=== PATIENT | female | born 1985 | race Two or more races ===

== ENCOUNTER 2021-12-01 11:14 | Day surgery (SDC) | payer OTHER ==
[2021-12-01] MEDS ORDERED: NAPR500T14 PO (13:13)
[2021-12-01] MEDS ORDERED: MORGIDOX100 MG PO (13:13)
== END 2021-12-01 19:05 | disposition home or self-care (01) ==
LOC: CIR.AMB 11:14
PROVIDERS: ATTEND Obstetrics & Gynecology
DX: N84.0 Polyp of corpus uteri (principal); Z86.16 Personal history of COVID-19

== ENCOUNTER 2023-05-02 14:31 | Outpatient (CLI) | payer OTHER ==
[~2023-05-02 14:31] MED LIST: MORGIDOX100 MG PO; NAPR500T14 PO
== END 2023-05-02 17:37 | disposition home or self-care (01) ==
LOC: PRENATAL 14:31
PROVIDERS: ATTEND Obstetrics & Gynecology Maternal & Fetal Medicine
DX: O35.9XX0 Maternal care for (suspected) fetal abnormality and damage, unspecified, not applicable or unspecified (principal); O35.3XX0 Maternal care for (suspected) damage to fetus from viral disease in mother, not applicable or unspecified; O44.00 Complete placenta previa NOS or without hemorrhage, unspecified trimester; O09.519 Supervision of elderly primigravida, unspecified trimester; Z3A.20 20 weeks gestation of pregnancy

== ENCOUNTER 2023-07-23 15:35 | Outpatient (CLI) | payer OTHER | END 2023-07-23 15:36 | disposition home or self-care (01) | LOC: PRENATAL 15:35 | PROVIDERS: ATTEND Obstetrics & Gynecology Maternal & Fetal Medicine | DX: O26.849 Uterine size-date discrepancy, unspecified trimester (principal); O36.8199 Decreased fetal movements, unspecified trimester, other fetus; O09.519 Supervision of elderly primigravida, unspecified trimester; Z3A.32 32 weeks gestation of pregnancy ==

== ENCOUNTER 2023-08-29 16:01 | Inpatient (IN) | payer OTHER ==
[~2023-08-29] VITALS: Ht 157.5 cm; Wt 66.2 kg
[2023-08-29] MEDS ORDERED: PRENATAL TABLE1 EAC1 PO (17:20)
[2023-08-29] MEDS ORDERED: IRON236 MG PO (17:21)
[2023-08-29 18:10] LABS: URINE APPEARANCE Clear; URINE BILIRRUBIN Negative (NEGATIVE); URINE BLOOD NHT; URINE COLOR Yellow; URINE GLUCOSE Negative (NEGATIVE); URINE LEUKOCYTE Negative; URINE NITRATE Negative; URINE PROTEIN Negative (NEGATIVE); URINE UROBILINOGEN 0.2 E.U./dl
[2023-08-29 18:13] LABS: URINE BACTERIA 37.7 uL (0.0-1933); URINE EPITHELIAL CELLS 4.3 uL (0.0-38.8); URINE RBC 45.1 uL (0.0-20.8); URINE WBC 7.1 uL (0.0-23.2)
[2023-08-29 18:17] LABS: INR < 0.93; PARTIAL THROMBOPLASTIN TIME 25.2 SECONDS (22.0-34.0); PROTHROMBIN TIME 9.3 SECONDS (9.0-11.5)
[2023-08-29 18:22] LABS: ALBUMIN 2.8 gm/dL (3.4-5.0); BILIRUBIN TOTAL 0.36 mg/dL (0.3-1.2); CALCIUM 9.1 mg/dL (8.5-10.1); CREATININE SERUM 0.61 mg/dL (0.55-1.02); GFR 111.61; GLOBULINA 3.5 G/DL (2.4-3.5); POTASSIUM 4.22 mEq/L (3.5-5.1); TOTAL PROTEIN 6.3 gm/dL (6.4-8.2)
[2023-08-29 18:27] LABS: HEMATOCRIT 30.8 % (36.0-45.00); HEMOGLOBIN 9.9 g/dL (12.0-15.00); MEAN CELL VOLUME 76.7 fL (80.00-100.00); MEAN CORPUSCULAR HEMOGLOBIN 24.7 pg (27.00-32.0); MEAN CORPUSCULAR HGB CONC 32.1 g/dl (32.0-36.0); RED BLOOD COUNT 4.01 M/uL (4.00-6.00)
[2023-08-29] MEDS ORDERED: MISOPROSTOL 25 MCG TABLET ONE (18:30)
[2023-08-29] MEDS ORDERED: MISOPROSTOL 25 MCG TABLET VAG ONE (18:45)
[2023-08-29] MEDS ORDERED: hydrOXYzine PAMOATE 25 MG CAPSULE PO PRN (18:45)
[2023-08-29 18:48] LABS: RED CELL DISTRIBUTION WIDTH 19.7 % (11.5-14.5)
[2023-08-29 18:50] LABS: PLATELET COUNT 118 K/uL (150-450)
[2023-08-30 07:00] LABS: HEMATOCRIT 30.3 % (36.0-45.00); HEMOGLOBIN 9.9 g/dL (12.0-15.00); MEAN CELL VOLUME 77.2 fL (80.00-100.00); MEAN CORPUSCULAR HEMOGLOBIN 25.2 pg (27.00-32.0); MEAN CORPUSCULAR HGB CONC 32.6 g/dl (32.0-36.0); RED BLOOD COUNT 3.92 M/uL (4.00-6.00); RED CELL DISTRIBUTION WIDTH 19.5 % (11.5-14.5)
[2023-08-30] MEDS ORDERED: OXYTOCIN 500 ML IV SCH (07:45)
[2023-08-30 08:29] LABS: PLATELET COUNT 100 K/uL (150-450)
[2023-08-30] MEDS ORDERED: MORPHINE SULFATE 4 MG/ML VIAL IV ONE (10:30)
[2023-08-30] MEDS ORDERED: CHLORHEXIDINE GLUCONATE 120 ML BOTTLE TOP ONE (11:34)
[2023-08-30] MEDS ORDERED: ERYTHROMYCIN BASE 1 GM TUBE OP ONE (11:34)
[2023-08-30] MEDS ORDERED: CEFAZOLIN SODIUM 1,000 MG VIAL IV SCH (14:30)
[2023-08-30] MEDS ORDERED: CEFAZOLIN SODIUM 1,000 MG VIAL ONE (16:51)
[2023-08-30] MEDS ORDERED: ERYTHROMYCIN BASE 3.5 GM OINT...G. OP ONE (17:01)
[2023-08-30] MEDS ORDERED: OXYTOCIN 10 UNITS/ML VIAL ONE ×2 (17:01→21:18)
[2023-08-30] MEDS ORDERED: CHLORHEXIDINE GLUCONATE 120 ML BOTTLE TOP SCH (17:45)
[2023-08-30] MEDS ORDERED: RINGERS SOLUTION,LACTATED 1,000 ML IV SCH (17:45)
[2023-08-30] MEDS ORDERED: ERYTHROMYCIN BASE 1 GM TUBE OP SCH (17:45)
[2023-08-30] MEDS ORDERED: OXYTOCIN 1,000 ML IV SCH (17:45)
[2023-08-30] MEDS ORDERED: SIMETHICONE 125 MG CAPSULE PO SCH (18:00)
[2023-08-30] MEDS ORDERED: PROMETHAZINE HCL 50 MG/ML AMPUL IV SCH (18:00)
[2023-08-30] MEDS ORDERED: MEPERIDINE HCL/PF 50 MG/ML VIAL IV SCH (18:00)
[2023-08-30 23:40] LABS: HEMATOCRIT 32.7 % (36.0-45.00); HEMOGLOBIN 10.3 g/dL (12.0-15.00); MEAN CELL VOLUME 77.7 fL (80.00-100.00); MEAN CORPUSCULAR HEMOGLOBIN 24.5 pg (27.00-32.0); MEAN CORPUSCULAR HGB CONC 31.6 g/dl (32.0-36.0); RED CELL DISTRIBUTION WIDTH 19.8 % (11.5-14.5)
[2023-08-30 23:41] LABS: PLATELET COUNT 130 K/uL (150-450)
[2023-08-31] MEDS ORDERED: OxyCODONE HCL/APAP UD (PERCOCET) PO PRN ×2 (08:45)
[2023-08-31] MEDS ORDERED: NIFEDIPINE 30 MG TAB.SA.OSM PO SCH (09:00)
[2023-08-31] MEDS ORDERED: IBUprofen 800 MG TABLET PO SCH (09:00)
[2023-08-31] MEDS ORDERED: DOCUSATE SODIUM 100MG CAP PO SCH (09:00)
[2023-08-31 10:29] LABS: HEMATOCRIT 32.3 % (36.0-45.00); HEMOGLOBIN 10.3 g/dL (12.0-15.00); MEAN CELL VOLUME 76.8 fL (80.00-100.00); MEAN CORPUSCULAR HEMOGLOBIN 24.5 pg (27.00-32.0); MEAN CORPUSCULAR HGB CONC 31.9 g/dl (32.0-36.0); RED BLOOD COUNT 4.21 M/uL (4.00-6.00); RED CELL DISTRIBUTION WIDTH 20.1 % (11.5-14.5)
[2023-08-31 11:55] LABS: PLATELET COUNT 110 K/uL (150-450)
[2023-09-01] MEDS ORDERED: NIFEDIPINE 30 MG TAB.SA.OSM PO ONE (09:15)
[2023-09-02 07:57] LABS: HEMATOCRIT 32.6 % (36.0-45.00); HEMOGLOBIN 10.6 g/dL (12.0-15.00); MEAN CELL VOLUME 77.4 fL (80.00-100.00); MEAN CORPUSCULAR HEMOGLOBIN 25.1 pg (27.00-32.0); MEAN CORPUSCULAR HGB CONC 32.5 g/dl (32.0-36.0); PLATELET COUNT 156 K/uL (150-450); RED BLOOD COUNT 4.21 M/uL (4.00-6.00); RED CELL DISTRIBUTION WIDTH 20.6 % (11.5-14.5)
[2023-09-02] MEDS ORDERED: NIFEDIPINE 60 MG TAB.SA.OSM PO SCH (09:00)
[2023-09-02] MEDS ORDERED: NIFEDIPINE ER60 MG PO (14:19)
[2023-09-02] MEDS ORDERED: COLACE100 MG PO (14:19)
[2023-09-02] MEDS ORDERED: IBUPROFEN800 MG PO (14:19)
[2023-09-02] MEDS ORDERED: OXYC1TAB9 PO (14:19)
== END 2023-09-02 15:13 | disposition home or self-care (01) | DRG 788 ==
LOC: OB/GYN 16:01 → LDR 16:01 → O/R 08-30 17:16 → OB/GYN 08-30 17:59
PROVIDERS: Student in an Organized Health Care Education/Training Program; ADMIT Obstetrics & Gynecology; ATTEND Obstetrics & Gynecology
PROC: 3E0P7VZ Introduction of Hormone into Female Reproductive, Via Natural or Artificial Opening (ICD-10-PCS; 2023-08-29)
PROC: 4A1HXCZ Monitoring of Products of Conception, Cardiac Rate, External Approach (ICD-10-PCS; 2023-08-29)
PROC: 3E033VJ Introduction of Other Hormone into Peripheral Vein, Percutaneous Approach (ICD-10-PCS; 2023-08-30)
PROC: 10D00Z1 Extraction of Products of Conception, Low, Open Approach (ICD-10-PCS; principal; 2023-08-30 19:15)
DX: O82 Encounter for cesarean delivery without indication (principal); O14.04 Mild to moderate pre-eclampsia, complicating childbirth; Z3A.37 37 weeks gestation of pregnancy; Z37.0 Single live birth; Z20.822 Contact with and (suspected) exposure to COVID-19